=== PATIENT | male | born 1945 | race Caucasian/White ===

== ENCOUNTER 2021-12-06 07:34 | Day surgery (SDC) | payer MEDICARE ==
[~2021-12-06] VITALS: Ht 167.6 cm; Wt 77.3 kg
[~2021-12-06 07:34] MED LIST: ALL DAY ALLERGY10 M3 PO; CHLORTHALIDONE25 MG PO; LEVOXYL125 MCG PO; LIPITOR40 MG PO; LOSARTAN POTASS50 MG PO; OMEPRAZOLE20 MG PO; OSTERA TABLET1 EACH PO; XANAX XR0.5 MG PO
--- NOTE | 2021-12-06 09:04 | NUR ---
12/06/21 0904 Makenzie Alford 0900 PATIENT ARRIVES TO PACU AWAKE, BUT DROWSY. SLEEPING WHEN NOT STIMULATED. RESP EVEN AND UNLABORED, NC AT 2 LITERS. OXYGEN OFF AFTER ARRIVAL TO PACU.
--- NOTE | 2021-12-08 17:31 | PATH ---
[facility] [address] [place], [place] [address] Signed SPECIMEN(S): A DUODENAL BIOPSY SPECIMEN(S): B STOMACH BIOPSY SPECIMEN(S): C GASTRIC POLYP SPECIMEN(S): D DISTAL ESOPHAGEAL BIOPSY SPECIMEN(S): E MID ESOPHAGEAL BIOPSY SPECIMEN SOURCE: A. DUODENAL BIOPSY B. STOMACH BIOPSY C. GASTRIC POLYP D. DISTAL ESOPHAGEAL BIOPSY E. MID ESOPHAGEAL BIOPSY CLINICAL HISTORY: Pertinent History/Clinical Impression: GERD; episodic substernal pain; history of C. diff; History of esophagitis; history of hiatal hernia. Postop Diagnosis: Gastritis. FINAL PATHOLOGIC DIAGNOSIS: A. Duodenum, biopsy: - Duodenal mucosa with no histopathologic abnormality. - Negative for increased intraepithelial lymphocytes or villous blunting. - Negative for dysplasia or malignancy. B. Stomach, biopsy: - Antral mucosa with chronic, inactive gastritis. - Negative for Helicobacter organisms on HE stain. - Negative for dysplasia or malignancy. C. Stomach, polyp, polypectomy: - Fundic gland polyp. - Negative for dysplasia or malignancy. D. Esophagus, distal, biopsy: - Squamous mucosa with mild focal reactive changes. - Negative for intestinal metaplasia, dysplasia, or malignancy. E. Esophagus, mid, biopsy: - Squamous mucosa with no histopathologic abnormality. - Negative for increased intraepithelial eosinophils. - Negative for intestinal metaplasia, dysplasia, or malignancy. NAL:cml:C2NR MICROSCOPIC EXAMINATION: Histologic sections of all submitted blocks are examined by light microscopy. PATIENT NAME: BLACK SMITH PATHOLOGY DATE OF : 47 REPORT #: [id number] PHYSICIAN: JESSIKA SWARTZ PCP: STONEY WOODWARD DO REPORT IS CONFIDENTIAL AND NOT TO BE RELEASED WITHOUT AUTHORIZATION [facility] [address] [place], [place] [address] Signed These findings, together with the gross examination, support the pathologic diagnosis. GROSS DESCRIPTION: Five specimens are received in five containers, labeled "LP." A. The specimen, labeled "LP, 1," and designated on the requisition "duodenum biopsy," is received in formalin and consists of one garibay soft tissue fragment that measures 0.4 cm in greatest dimension. The specimen is entirely submitted in cassette (A1). B. The specimen, labeled "LP, 2," and designated on the requisition "stomach biopsy," is received in formalin and consists of 2 garibay soft tissue fragment(s) that measure 0.3 and 0.4 cm in greatest dimension. The specimen is entirely submitted in cassette (B1). C. The specimen, labeled "LP, 3," and designated on the requisition "stomach polypectomy gastric," is received in formalin and consists of 2 garibay soft tissue fragment(s) that measure 0.5 cm in greatest dimension. The specimen is entirely submitted in cassette (C1). D. The specimen, labeled "LP, 4," and designated on the requisition "esophagus biopsy distal," is received in formalin and consists of 3 garibay-white soft tissue fragment(s) that measure 0.2-0.3 cm in greatest dimension. The specimen is entirely submitted in cassette (D1). E. The specimen, labeled "LP, 5," and designated on the requisition "middle esophagus biopsy," is received in formalin and consists of one garibay-white soft tissue fragment that measures 0.4 cm in greatest dimension. The specimen is entirely submitted in cassette (E1). AI (under the direct supervision of a pathologist) The Gross Description was prepared using a voice recognition system. The report was reviewed for accuracy; however, sound-alike word errors, addition and/or deletions may occur. If there is any question about this report, please contact Client Services. PERFORMING LABORATORY: The technical component was performed by [facility] [address] (Artificial Inseminator: Mirta Sidhu MD; CLIA# [id number]). Professional interpretation was performed by [facility], [address] [address] (CLIA# [id number]). Diagnostician: Lis Horta MD Pathologist Electronically Signed 12/08/2021 PATIENT NAME: BALCK SMITH PATHOLOGY DATE OF : 47 REPORT #: [id number] PHYSICIAN: JESSIKA SWARTZ PCP: STONEY WOODWARD DO REPORT IS CONFIDENTIAL AND NOT TO BE RELEASED WITHOUT AUTHORIZATION [facility] [address] [place], [place] [address] Signed Copies: ~ PATIENT NAME: BLACK SMITH PATHOLOGY DATE OF : 47 REPORT #: [id number] PHYSICIAN: JESSIKA PATHOLOGY PCP: STONEY WOODWARD DO REPORT IS CONFIDENTIAL AND NOT TO BE RELEASED WITHOUT AUTHORIZATION
--- NOTE | 2021-12-08 22:08 | OR ---
[facility] [address] [place], [place] [address] Signed DATE OF OPERATION: 12/06/2021 SURGEON: Ghazala Rodriguez MD PREOPERATIVE DIAGNOSES: 1. Epigastric pain and "reflux.". 2. Known history of hiatal hernia and esophagitis; the patient on PPI medication. POSTOPERATIVE DIAGNOSES: 1. Antral gastritis (mild) and secondary proximal gastric polyps. 2. Minimal distal esophagitis, but poor flap valve. PROCEDURE: Esophagogastroduodenoscopy with biopsy. ANESTHESIA: Intravenous sedation; fentanyl 100 mcg and Versed 3 mg. INDICATION: This 76-year-old white man is well known to me from the past. He remains a patient of Dr. Stoney Woodward in [place], [place]. The patient was known to have hiatal hernia and reflux disease. He has been on omeprazole for quite some time. He has no associated dysphagia. He has been having rather significant episodes of epigastric pain and on one occasion visit to the emergency room in 2019. He has undergone echocardiogram which was said to be normal and is under the care of Dr. Guerin, pre k special education teacher in [place] and said to have no anginal-type component. He is admitted at this time to undergo upper endoscopy to better characterize his problem, understands the risks of bleeding, infection, and perforation. FINDINGS: The esophagus was relatively normal. Minimal distal esophagitis was noted. There was no Camara's epithelium, stricture, or neoplasm. Stomach had proximal gastric polyps almost certainly benign and likely related to ongoing use of PPI medication. The antrum had mild inflammation for which biopsies were obtained. The pylorus was normal. The duodenum was normal. CLOtest was negative 20 minutes post procedure. DESCRIPTION OF PROCEDURE: The patient was brought to the endoscopy suite and given topical lidocaine hypopharyngeal anesthesia and placed in lateral decubitus position. He was given intravenous sedation to the point of slurred speech and nystagmus. Full cardiopulmonary Electronically Signed By: GHAZALA RODRIGUEZ MD 12/08/21 2208 PATIENT NAME: BLACK SMITH OPERATIVE REPORT DATE OF : 47 REPORT #: [id number] PHYSICIAN: GHAZALA RODRIGUEZ MD PCP: STONEY WOODWARD DO REPORT IS CONFIDENTIAL AND NOT TO BE RELEASED WITHOUT AUTHORIZATION [facility] [address] [place], [place] [address] Signed monitoring was maintained. A bite block was placed. An Olympus video upper endoscope was passed in the hypopharynx. The vocal cords appeared normal including the posterior fourchette. The scope was advanced into the esophagus and throughout its length, it was reasonably normal. Last part had minimal inflammatory change but no stricture, neoplasm, or Camara's epithelium and no varices. The scope was advanced to the stomach, which was insufflated with air. Rugal folds were normal. A somewhat redundant appearing mucosa was noted. The antrum showed mild chronic inflammation, but no sign of ulceration. The pylorus was normal. Scope was passed through the end of the duodenum, which was normal. Biopsies were obtained of the 2nd bulbar portions of the duodenum. Scope was withdrawn. A biopsy was then taken of the antrum for both FROY and pathologic testing. Retroflexed view showed a marginal flap valve. A proximal gastric polyp was excised as well. The scope was straightened and withdrawn. A biopsy was then taken of the distal esophagus and the midesophagus. The patient was taken to the recovery room at conclusion of the procedure, having suffered no complication. CONCLUDING DIAGNOSIS: Antral gastritis. No evidence of significant esophagitis at this time. PLAN: We will recommend continued use of omeprazole 20 mg daily and prescribed Carafate 1 g p.o. q.i.d. and return to see me in approximately 6 to 8 weeks. MD CYNTHIA Cuevas/SHALINIL /[id number] cc: Stoney Woodward DO Copies: STONEY WOODWARD DO ~ Electronically Signed By: GHAZALA RODRIGUEZ MD 12/08/21 2208 PATIENT NAME: BLACK SMITH OPERATIVE REPORT DATE OF : 47 REPORT #: [id number] PHYSICIAN: GHAZALA RODRIGUEZ MD PCP: STONEY WOODWARD DO REPORT IS CONFIDENTIAL AND NOT TO BE RELEASED WITHOUT AUTHORIZATION
== END 2021-12-06 09:35 | disposition home or self-care (01) ==
LOC: OPS 07:34 → DS 07:34 → OPS 08:30 → DS 08:30 → OPS 09:35 → DS 12-14 12:00
PROVIDERS: ATTEND Surgery
PROC: 0DB68ZZ Excision of Stomach, Via Natural or Artificial Opening Endoscopic (ICD-10-PCS; principal; 2021-12-06 08:30)
DX: K21.00 Gastro-esophageal reflux disease with esophagitis, without bleeding (principal); K31.7 Polyp of stomach and duodenum; K29.50 Unspecified chronic gastritis without bleeding; Z87.891 Personal history of nicotine dependence
CPT/HCPCS: 99153; G0500; J0690; J2250; J3010; J7121

== ENCOUNTER 2023-07-04 09:49 | Day surgery (SDC) | payer MEDICARE ==
[~2023-07-04] VITALS: Ht 167.6 cm; Wt 68.6 kg
[2023-07-04 10:06] VITALS: BP 161/76
--- NOTE | 2023-07-04 11:34 | NUR ---
07/04/23 1133 Stephy Bello 1129-PATIENT ARRIVED TO PACU ON RA RR EVEN. PATIENT AWAKE DROWSY DENIES PAIN OR NAUSEA. LAYING LEFT LATERAL ABDOMEN SOFT IVF INFUSING. PATIENT DOZES TO SLEEP. 1133-PATIENT SLEEPING AROUSES TO VERBAL STIMULI DENIES PAIN OR NAUSEA. HOB ELEVATED PATIENT REPOSITIONS SELF IN BED. DOZES BACK TO SLEEP. RA 95% RR EVEN.
[2023-07-04 12:01] VITALS: BP 112/60
--- NOTE | 2023-07-06 08:41 | OR ---
[facility] [address] [place], [place] [address] Signed DATE OF OPERATION: 07/04/2023 SURGEON: Ghazala Rodriguez MD PREOPERATIVE DIAGNOSES: 1. History of polyps five years ago. 2. Family history of colon cancer (son). 3. History of sigmoid resection for diverticular disease. POSTOPERATIVE DIAGNOSES: 1. No evidence of polyps. 2. Minimal diverticular changes. PROCEDURE: Total colonoscopy to cecum. ANESTHESIA: Intravenous sedation fentanyl 100 mcg and Versed 5 mg. INDICATION: A 78-year-old white man is patient of Dr. Woodward in [place], [place]. He last underwent colonoscopy by me five years ago where he was found to have adenomatous polyps. He currently has no symptoms of bleeding, diarrhea or constipation. He does have family history of colon cancer in his son, who was treated and remains free of disease. He is known to have had diverticulosis requiring sigmoid resection. The risk of bleeding, infection, and perforation related to colonoscopy were reviewed with him. He understands and wished to proceed. FINDINGS: The prep was good. Complete colonoscopy was undertaken to the cecum. There was no sign of polyps. He had few scattered diverticula. The anastomosis was widely patent. PROCEDURE IN DETAIL: The patient was brought to the endoscopy suite and placed in lateral decubitus position, given intravenous sedation to the point of slurred speech and nystagmus. Digital rectal examination was normal. An Olympus video colonoscope was passed in the rectum and manipulated throughout the colon ultimately intubating the cecum itself. The ileocecal valve and appendiceal orifice were normal. The scope was withdrawn from that point. Examination throughout Electronically Signed By: GHAZALA RODRIGUEZ MD 07/06/23 0841 PATIENT NAME: BLACK SMITH OPERATIVE REPORT DATE OF : 47 REPORT #: [id number] PHYSICIAN: GHAZALA RODRIGUEZ MD PCP: STONEY WOODWARD DO REPORT IS CONFIDENTIAL AND NOT TO BE RELEASED WITHOUT AUTHORIZATION [facility] [address] [place] [id number] Signed showed only a few scattered diverticula, but no sign of polyps. The anastomosis was widely patent. Retroflexed view of the rectum was normal. Scope was removed. The patient was taken to the recovery room in good condition. CONCLUDING DIAGNOSIS: Normal colon other than diverticular changes. PLAN: Recommend repeat colonoscopy in 5 years based on family history. Recommend high-fiber diet as well. He will return to the ongoing care of Dr. Woodward in [place], [place]. MD CYNTHIA Cuevas/YENI /[id number] cc: Stoney Woodward DO Copies: STONEY WOODWARD DO ~ Electronically Signed By: GHAZALA RODRIGUEZ MD 07/06/23 0841 PATIENT NAME: BLACK SMITH OPERATIVE REPORT DATE OF : 47 REPORT #: [id number] PHYSICIAN: GHAZALA RODRIGUEZ MD PCP: STONEY WOODWARD DO REPORT IS CONFIDENTIAL AND NOT TO BE RELEASED WITHOUT AUTHORIZATION
== END 2023-07-04 12:10 | disposition home or self-care (01) ==
LOC: OPS 09:49 → DS 11:40 → OPS 12:10 → DS 14:00 → OPS 07-13 14:00
PROVIDERS: ATTEND Surgery
PROC: 0DJD8ZZ Inspection of Lower Intestinal Tract, Via Natural or Artificial Opening Endoscopic (ICD-10-PCS; principal; 2023-07-04 10:45)
DX: Z12.11 Encounter for screening for malignant neoplasm of colon (principal); Z95.4 Presence of other heart-valve replacement; Z87.19 Personal history of other diseases of the digestive system; Z80.0 Family history of malignant neoplasm of digestive organs; K21.00 Gastro-esophageal reflux disease with esophagitis, without bleeding; Z87.891 Personal history of nicotine dependence; Z88.0 Allergy status to penicillin
CPT/HCPCS: G0105; 99153; G0500; J2250; J3010; J3490; J7121